=== PATIENT | female | born 1990 | race American Indian/Alaskan Native ===

== ENCOUNTER 2019-12-19 09:54 | Emergency (ER) | payer OTHER ==
[2019-12-19 10:00] VITALS: BP 113/69
[2019-12-19 11:04] LABS: Bilirubin,Urine NEG (Negative); Blood,Urine NEG (Negative); Color,Urine Yellow (Yellow); Protein,Urine <15 mg/dL mg/dL (Negative)
[2019-12-19 11:27] LABS: Basophils % (Auto) 0.1 % (0.0-1.8); Hematocrit 42.6 % (30.3-42.9); Hemoglobin 14.5 gm/dl (10.1-14.3); Lymphocytes # (Auto) 1.7 K/mm3 (1.2-5.4); Mean Corpuscular HGB Conc 34 % (30-34); Mean Corpuscular Volume 98 fl (79-97); Monocytes # (Auto) 0.9 K/mm3 (0.0-0.8); Monocytes % (Auto) 6.6 % (0.0-7.3); Platelet Count 284 K/mm3 (140-440); Red Blood Count 4.36 M/mm3 (3.65-5.03); Red Cell Distribution Width 13.6 % (13.2-15.2)
[2019-12-19 11:37] LABS: Alanine Aminotransferase 16 units/L (7-56); Albumin 4.3 g/dL (3.9-5); BUN/Creatinine Ratio 8; Blood Urea Nitrogen 5 mg/dL (7-17); Calcium 9.8 mg/dL (8.4-10.2); Hemolysis Index 58
[2019-12-19] MEDS ORDERED: SODIUM CHLORIDE 0.9% 1000 ML 1,000 ML IV ONE ×2 (12:33→12:35)
[2019-12-19] MEDS ORDERED: ONDANSETRON 4 MG/2 ML INJ IV ONE (12:35)
--- NOTE | 2019-12-19 14:49 | Emergency Department Report ---
ED N/V/D HPI - General Chief complaint: Nausea/Vomiting/Diarrhea Stated complaint: PREG/N/V Time Seen by Provider: 12/19/19 12:34 Source: patient Mode of arrival: Ambulatory Limitations: No Limitations - History of Present Illness Initial comments: Grecia is a 29 yo female healthy with hx of medical illness who presents wtih new diagnosis of this saturday at urgent care clinic. She has had nausea vomiting fatigue since Saturday. LMP mid November. First preganancy. She does not have abdominal pain. Her stomach feels empty and tightness in the epigastric region. Mother is concerned for dehydration. Denies vaginal bleeding. MD complaint: nausea, vomiting -: Gradual, days(s) (5) Description of Vomiting: food contents Associated Abdominal Pain: No Severity: moderate Consistency: constant Improves with: none Worsens with: none Context: other (recent diagnosis of ) Associated Symptoms: nausea/vomiting - Related Data Previous Rx's Medication Instructions Recorded Last Taken Type Promethazine [Phenergan] 25 mg PO Q6HR PRN #20 tab 12/19/19 Unknown Rx Allergies Allergy/AdvReac Type Severity Reaction Status Date / Time No Known Allergies Allergy Unverified 12/19/19 09:58 ED Review of Systems ROS: Stated complaint: PREG/N/V Other details as noted in HPI Comment: All other systems reviewed and negative Constitutional: denies: fever, malaise Cardiovascular: denies: chest pain Gastrointestinal: nausea, vomiting. denies: abdominal pain ED Past Medical Hx - Past Medical History Previous Medical History?: No - Surgical History Past Surgical History?: No - Social History Smoking Status: Former Smoker Substance Use Type: Alcohol, Marijuana - Medications Home Medications: Home Medications Medication Instructions Recorded Confirmed Last Taken Type Promethazine [Phenergan] 25 mg PO Q6HR PRN #20 tab 12/19/19 Unknown Rx ED Physical Exam - General Limitations: No Limitations General appearance: alert, in no apparent distress - Head Head exam: Present: atraumatic, normocephalic - Eye Eye exam: Present: normal appearance - ENT ENT exam: Present: mucous membranes moist - Neck Neck exam: Present: normal inspection, full ROM - Respiratory Respiratory exam: Present: normal lung sounds bilaterally. Absent: respiratory distress, wheezes, rales, rhonchi - Cardiovascular Cardiovascular Exam: Present: regular rate, normal rhythm, normal heart sounds. Absent: systolic murmur, diastolic murmur, rubs, gallop - GI/Abdominal GI/Abdominal exam: Present: soft, normal bowel sounds. Absent: distended, tenderness, guarding, rebound - Extremities Exam Extremities exam: Present: normal inspection - Neurological Exam Neurological exam: Present: alert, oriented X3, normal gait - Psychiatric Psychiatric exam: Present: normal affect, normal mood - Skin Skin exam: Present: warm, dry, intact, normal color. Absent: rash ED Course Vital Signs 12/19/19 09:59 Temperature 98.4 F Pulse Rate 73 Respiratory 16 Rate Blood Pressure 113/69 O2 Sat by Pulse 98 Oximetry ED Medical Decision Making - Lab Data Result diagrams: 12/19/19 10:31 12/19/19 10:31 Laboratory Results - last 24 hr 12/19/19 12/19/19 12/19/19 10:15 10:31 10:31 WBC 13.2 H RBC 4.36 Hgb 14.5 H Hct 42.6 MCV 98 H MCH 33 H MCHC 34 RDW 13.6 Plt Count 284 Lymph % (Auto) 13.0 L Cottle % (Auto) 6.6 Eos % (Auto) 0.0 Baso % (Auto) 0.1 Lymph # 1.7 Cottle # 0.9 H Eos # 0.0 Baso # 0.0 Seg Neutrophils % 80.3 H Seg Neutrophils # 10.6 H Sodium 132 L Potassium 3.3 L Chloride 92.1 L Carbon Dioxide 25 Anion Gap 18 BUN 5 L Creatinine 0.6 L Estimated GFR > 60 BUN/Creatinine Ratio 8 Glucose 99 Calcium 9.8 Total Bilirubin 1.70 H AST 22 ALT 16 Alkaline Phosphatase 82 Total Protein 7.5 Albumin 4.3 Albumin/Globulin Ratio 1.3 Urine Color Yellow Urine Turbidity Slightly-cloudy Urine pH 7.0 Ur Specific [place] 1.005 Urine Protein <15 mg/dl Urine Glucose (UA) Neg Urine Ketones 20 Urine Blood Neg Urine Nitrite Neg Urine Bilirubin Neg Urine Urobilinogen 2.0 Ur Leukocyte Esterase Neg Urine WBC (Auto) 1.0 Urine RBC (Auto) 2.0 U Epithel Cells (Auto) 9.0 - Medical Decision Making Ms. Cardoza presents with nausea vomiting due to . Labs reflective of dehydration. Mild hyponatremia and hypochloremia. Nonspecific leukocytosis without fever or abdominal tenderness present. She felt better after receiving IV fluid therapy in emergency department. She was relieved that she was able to urinate finally. I prescribed promethazine. I have referred her to our side framer crayon sorting machine feeder. She understands to return for any worsening symptoms or new symptoms. Critical care attestation.: If time is entered above; I have spent that time in minutes in the direct care of this critically ill patient, excluding procedure time. ED Disposition Clinical Impression: Hyperemesis gravidarum, , Dehydration Disposition: TO HOME OR SELFCARE Is pt being admited?: No Does the pt Need Aspirin: No Condition: Stable Instructions: Hyperemesis Gravidarum (ED), Dehydration (ED) Prescriptions: Promethazine [Phenergan] 25 mg PO Q6HR PRN #20 tab PRN Reason: Nausea Referrals: LILLIANA SALMERON MD [Staff Physician] - 3-5 Days
== END 2019-12-19 16:30 | disposition home or self-care (01) ==
LOC: ED 09:54
DX: O21.0 Mild hyperemesis gravidarum (principal); O99.280 Endocrine, nutritional and metabolic diseases complicating pregnancy, unspecified trimester; E86.0 Dehydration; O99.320 Drug use complicating pregnancy, unspecified trimester; F10.10 Alcohol abuse, uncomplicated; F12.10 Cannabis abuse, uncomplicated; Z87.891 Personal history of nicotine dependence; Z79.899 Other long term (current) drug therapy; Z3A.00 Weeks of gestation of pregnancy not specified
CPT/HCPCS: 36415; 80053; 81001; 85025; 96361; 96374; 99283; J2405; J7030

== ENCOUNTER 2020-04-29 11:13 | Inpatient (IN) | payer MEDICAID ==
[2020-04-29] MEDS ORDERED: LACTATED RINGERS 500 ML IV ONE (11:26)
--- NOTE | 2020-04-29 12:32 | Ultrasound Report ---
Limited OB Ultrasound HISTORY: no heart tones. TECHNIQUE: Grayscale and color imaging performed. COMPARISON: None FINDINGS: Single intrauterine gestation with cephalic presentation. No heart tones are identifi ed. IMPRESSION: Findings suggestive of demise. Signer Name: Arturo Barbosa MD Signed: 04/29/2020 12:27 PM Workstation Name: [id number]
[2020-04-29] MEDS ORDERED: LIDOCAINE (2%) 20 MG/1 ML VIAL 20 ML MDV INFILTRATI ONE (12:39)
[2020-04-29] MEDS ORDERED: TERBUTALINE 1 MG/1 ML INJ SUB-Q PRN (12:39)
[2020-04-29] MEDS ORDERED: MINERAL OIL 30 ML ORAL LIQD PO PRN (12:39)
[2020-04-29] MEDS ORDERED: ePHEDrine SULFATE 50 MG/1 ML INJ IV PRN (12:39)
[2020-04-29] MEDS ORDERED: TERBUTALINE 1 MG/1 ML INJ IVP PRN (12:39)
[2020-04-29] MEDS ORDERED: miSOPROStol 25 MCG TAB VG SCH (13:00)
[2020-04-29] MEDS ORDERED: OXYTOCIN DRIP 30 UNITS/500 ML BAG IV SCH ×2 (13:00)
[2020-04-29 14:55] LABS: Hematocrit 35.7 % (30.3-42.9); Hemoglobin 11.8 gm/dl (10.1-14.3); Mean Corpuscular HGB Conc 33 % (30-34); Mean Corpuscular Volume 95 fl (79-97); Platelet Count 316 K/mm3 (140-440); Red Blood Count 3.77 M/mm3 (3.65-5.03); Red Cell Distribution Width 13.3 % (13.2-15.2)
[2020-04-29] MEDS: LACTATED RINGERS 1,000 ML IV SCH ×2 (15:01→22:54)
[2020-04-29] MEDS: ONDANSETRON 4 MG/2 ML INJ IV PRN (17:24)
[2020-04-29] MEDS ORDERED: miSOPROStol 200 MCG TAB ONE (18:21)
[2020-04-30] MEDS: BUTORPHANOL 2 MG/1 ML INJ IV PRN ×3 (01:28→10:43)
[2020-04-30] MEDS: miSOPROStol 200 MCG TAB VG SCH ×3 (03:16→14:52)
[2020-04-30] MEDS: LACTATED RINGERS 1,000 ML IV SCH ×3 (06:15→22:21)
--- NOTE | 2020-04-30 07:18 | History and Physical Report ---
History of Present Illness Date of examination: 04/29/20 Date of admission: 04/29/20 12:39 Chief complaint: demise Past History - Obstetrical History : 3 Medications and Allergies Allergies Allergy/AdvReac Type Severity Reaction Status Date / Time No Known Allergies Allergy Verified 04/29/20 11:26 Home Medications Medication Instructions Recorded Confirmed Last Taken Type Promethazine [Phenergan] 25 mg PO Q6HR PRN #20 tab 12/19/19 Unknown Rx Active Meds: Active Medications Butorphanol Tartrate (Stadol) 2 mg IV Q2H PRN PRN Reason: Pain , Severe (7-10) Last Admin: 04/30/20 06:17 Dose: 2 mg Documented by: Ephedrine Sulfate (Ephedrine Sulfate) 10 mg IV Q2M PRN PRN Reason: Hypotension Oxytocin/Sodium Chloride (Pitocin/Ns 20 Unit/1000ml Drip) 20 units in 1,000 mls @ 125 mls/hr IV DIRECT NICHELLE Oxytocin/Sodium Chloride (Pitocin/Ns 30 Unit/500ml) 30 units in 500 mls @ 1 mls/hr IV TITR NICHELLE; Protocol Oxytocin/Sodium Chloride (Pitocin/Ns 30 Unit/500ml) 30 units in 500 mls @ 4 mls/hr IV TITR NICHELLE; Protocol Lactated Ringer's (Lactated Ringers) 1,000 mls @ 125 mls/hr IV DIRECT NICHELLE Last Admin: 04/30/20 06:15 Dose: 125 mls/hr Documented by: Mineral Oil (Mineral Oil) 30 ml PO QHS PRN PRN Reason: Constipation Misoprostol (Cytotec) 200 mcg VG Q4H NICHELLE Last Admin: 04/30/20 03:16 Dose: 200 mcg Documented by: Ondansetron HCl (Zofran) 4 mg IV Q4H PRN PRN Reason: Nausea And Vomiting Last Admin: 04/29/20 17:24 Dose: 4 mg Documented by: Terbutaline Sulfate (Brethine) 0.25 mg SUB-Q ONCE PRN PRN Reason: Hyperstimulation/Hypertonicity Terbutaline Sulfate (Brethine) 0.25 mg IVP ONCE PRN PRN Reason: Hyperstimulation/Hypertonicity - Vital Signs Vital signs: Vital Signs Temp Pulse Resp BP Pulse Ox 98.4 F 91 H 20 111/65 99 04/29/20 11:30 04/29/20 11:30 04/29/20 11:30 04/29/20 11:30 04/29/20 11:30 Temp Pulse Resp BP Pulse Ox 97.9 F 76 18 94/54 99 04/29/20 23:02 04/29/20 23:02 04/30/20 07:16 04/29/20 23:02 04/29/20 11:30 Results Result Diagrams: 04/29/20 14:00 All other labs normal.
[2020-04-30] MEDS: ONDANSETRON 4 MG/2 ML INJ IV PRN (08:50)
[2020-04-30] MEDS ORDERED: PROMETHAZINE 25 MG TAB PO PRN (10:28)
[2020-04-30] MEDS ORDERED: OXYTOCIN 10 UNIT/1 ML INJ ONE (11:30)
[2020-04-30] MEDS ORDERED: MORPHINE 10 MG/1 ML INJ IV PRN (13:14)
--- NOTE | 2020-04-30 21:02 | Progress Note ---
Assessment and Plan A: 29 yo at 25 weeks EGA with IUFD due to cardiac anomalies s/p several doses of Cytotec with minimal cervical change P: Discussed r/b/a of Cook Catheter placement. Pt elects for placement. Placed in sterile fashion, each balloon inflated to 60ml, pt tolerated well. Next Cytotec dose at 0100 Anticipate normal vaginal delivery Subjective - Subjective Date of service: 04/30/20 Principal diagnosis: IOL for IUFD Interval history: Pt is experiencing occasional mild cramping. Patient reports: no new complaints, no loss of fluid, no vaginal bleeding Objective - Vital Signs Vital Signs: Vital Signs - 12hr 04/30/20 04/30/20 04/30/20 10:15 12:00 14:00 Temperature 98.4 F 98.3 F 97.3 F L Respiratory Rate 04/30/20 04/30/20 04/30/20 16:00 18:00 20:43 Temperature 97.8 F 97.8 F Respiratory 18 Rate - Exam Lungs: Normal air movement Uterine Contraction Pattern: Irregular Uterine Contraction Intensity: Mild
[2020-05-01] MEDS: BUTORPHANOL 2 MG/1 ML INJ IV PRN (01:34)
[2020-05-01] MEDS: miSOPROStol 200 MCG TAB VG SCH (01:35)
[2020-05-01] MEDS ORDERED: fentaNYL-BUPIV 2 MCG/ML-0.125% 0 MCG/0 ML BAG EPIDURAL ONE (04:32)
[2020-05-01] MEDS ORDERED: DEXMEDETOMIDINE 200 MCG/2 ML VIAL IV ONE (04:32)
[2020-05-01] MEDS ORDERED: miSOPROStol 100 MCG TAB ONE (05:14)
[2020-05-01] MEDS: OXYTOCIN 20 UNIT/1000ML DRIP 20 UNITS/1,000 ML BAG IV SCH ×2 (05:28→06:06)
--- NOTE | 2020-05-01 05:31 | Procedure Note ---
OB Delivery Note - Delivery Date of Delivery: 05/01/20 Surgeon: AV MARCELO (CNM) Estimated blood loss: <100cc - Vaginal Delivery presentation: vertex Intrapartum events: meconium Delivery induction: misoprostol Delivery monitor: external uterine Route of delivery: Delivery placenta: spontaneous Delivery cord: 3 umbilical vessels, other (hypercoiled) Episiotomy: none Delivery laceration: none Delivery comments: Pt felt pressure and swiftly delivered stillborn fetus while this CNM was en route. Per Alberto Pollock RN, meconium stained amniotic fluid present. Placenta delivered spontaneously and intact 40 minutes after fetus, hypercoiled cord noted. EBL 50cc. Cytotec 400mcg administered MT, 400mcg buccal. Pt adjusting well.
[2020-05-01] MEDS ORDERED: WITCH HAZEL/ GLYCERIN PAD TP PRN (05:37)
[2020-05-01] MEDS ORDERED: ACETAMINOPHEN 325 MG TAB PO PRN (05:37)
[2020-05-01] MEDS ORDERED: PROMETHAZINE 25 MG RECT SUPP PR PRN (05:37)
[2020-05-01] MEDS ORDERED: MAGNESIUM HYDROXIDE (MOM) ORAL LIQD UDC PO PRN (05:37)
[2020-05-01] MEDS ORDERED: PROMETHAZINE 25 MG TAB PO PRN (05:37)
[2020-05-01] MEDS ORDERED: diphenhydrAMINE 25 MG CAP PO PRN (05:37)
[2020-05-01] MEDS ORDERED: ONDANSETRON 4 MG/2 ML INJ IV PRN (05:37)
[2020-05-01] MEDS ORDERED: IBUPROFEN 600 MG TAB PO SCH (06:00)
[2020-05-01] MEDS ORDERED: miSOPROStol 200 MCG TAB PR ONE (06:15)
--- NOTE | 2020-05-01 13:49 | Discharge Summary ---
Providers - Providers Date of Admission: 04/29/20 12:39 Date of discharge: 05/01/20 Attending physician: GINGER RIGGS Primary care physician: GINGER RIGGS Hospitalization Reason for admission: IUP - , IUFD (at 25 weeks) Delivery: Episiotomy: none Laceration: none Other procedures: none complications: none Discharge diagnosis: other ( demise, delivered) Hospital course: Pt arrived for induction of labor secondary to 25 wk demise. She received several doses of Cytotec and a Cook Catheter. She underwent an uncomplicated spontaneous vaginal delivery. She met discharge criteria at 12 hours . Condition at discharge: Good Disposition: DC-01 TO HOME OR SELFCARE Plan - Discharge Medications Prescriptions: Ibuprofen [Motrin 600 MG tab] 600 mg PO Q6H #60 tablet - Provider Discharge Summary Activity: routine, no sex for 6 weeks, no heavy lifting 4 weeks, no strenuous exercise Diet: routine Instructions: routine Additional instructions: [] Smoking cessation referral if applicable(refer to patient education folder for contact #) [] Refer to [facility] Booklet Call your doctor immediately for: * Fever > 100.5 * Heavy vaginal bleeding ( >1 pad per hour) * Severe persistent headache * Shortness of breath * Reddened, hot, painful area to leg or breast * Drainage or odor from incision. * Keep incision clean and dry at all times and follow doctor's instructions regarding bathing/showering - Follow up plan Follow up: AV MARCELO CNM [Advanced Practice Nurse] - 48 Hours (Please call [place] [facility] helper to schedule appointment for May 03.)
[2020-05-01 16:32] VITALS: BP 96/70
== END 2020-05-01 17:00 | disposition home or self-care (01) | DRG 775 ==
LOC: TRG 11:13 → APU 11:15 → LD 12:39 → TRG 12:39 → OB 05-01 09:20
PROVIDERS: ADMIT Obstetrics & Gynecology; ATTEND Obstetrics & Gynecology
PROC: 10E0XZZ Delivery of Products of Conception, External Approach (ICD-10-PCS; principal; 2020-05-01)
PROC: 3E033VJ Introduction of Other Hormone into Peripheral Vein, Percutaneous Approach (ICD-10-PCS; 2020-05-01)
DX: O77.0 Labor and delivery complicated by meconium in amniotic fluid (principal); O60.12X0 Preterm labor second trimester with preterm delivery second trimester, not applicable or unspecified; O36.4XX0 Maternal care for intrauterine death, not applicable or unspecified; Z37.1 Single stillbirth; Z3A.25 25 weeks gestation of pregnancy
CPT/HCPCS: 36415; 76815; 85027; 86850; 86900; 86901; 88305; 88341; 88342; G0378; J0595; J2270; J2405; J2590; J3490; J7120; Q0169